=== PATIENT | female | born 1945 | race Caucasian/White ===

== ENCOUNTER 2021-08-21 06:01 | Day surgery (SDC) | payer MEDICARE ==
[2021-08-21] MEDS ORDERED: Bupivacaine 0.5% 30 ML SDV ONE (06:47)
[2021-08-21 06:49] LABS: ESTIMATED GFR 78 mL/min (>60)
[2021-08-21] MEDS ORDERED: Lactated Ringers 1,000 ML IV SCH (07:00)
[2021-08-21] MEDS ORDERED: Propofol 200 MG/20 ML SDV ONE (07:13)
[2021-08-21] MEDS ORDERED: fentaNYL 100 MCG/2 ML SDV ONE (07:13)
[2021-08-21] MEDS ORDERED: Midazolam 1 MG/ML 2 ML SDV ONE (07:13)
[2021-08-21] MEDS ORDERED: Nozin Nasal Sanitizer NASBOTH ONE (07:30)
[2021-08-21] MEDS ORDERED: ceFAZolin 1 GM in Premix Bag 1 BAG IV ONE (07:30)
[2021-08-21 09:32] VITALS: BP 129/68; PULSE 70
== END 2021-08-21 09:38 | disposition home or self-care (01) ==
LOC: JP.SDS 06:01
PROVIDERS: ATTEND Specialist
DX: D17.22 Benign lipomatous neoplasm of skin and subcutaneous tissue of left arm (principal); J45.909 Unspecified asthma, uncomplicated; E78.5 Hyperlipidemia, unspecified; K21.9 Gastro-esophageal reflux disease without esophagitis; Z88.2 Allergy status to sulfonamides; Z88.8 Allergy status to other drugs, medicaments and biological substances
CPT/HCPCS: 23075; 36415; 80053; 85027; 88304; A9270; J0690; J2250; J2704; J3010; J3490; J7120

== ENCOUNTER 2023-08-21 11:13 | Emergency (ER) | payer MEDICARE ==
[2023-08-21 11:29] VITALS: BP 151/81; PULSE 89
[2023-08-21 12:11] LABS: BASOPHILS ABSOLUTE AUTO 0.03 K/uL (0.00-0.10); BASOPHILS PERCENT AUTO 0.3 % (0.1-1.3); HEMATOCRIT 41.8 % (34.3-46.0); IMMATURE GRAN ABSOLUTE AUTO 0.04 K/uL (0.00-0.23); IMMATURE GRAN PERCENT AUTO 0.4 % (0.0-0.7); LYMPHOCYTES ABSOLUTE AUTO 0.73 K/uL (0.8-3.3); LYMPHOCYTES PERCENT AUTO 7.6 % (11.4-47.7); MEAN CORPUSCULAR HEMOGLOBIN 29.7 pg (31.6-35.5); MEAN CORPUSCULAR HGB CONC 33.5 g/dL (31.6-35.5); MEAN CORPUSCULAR VOLUME 88.6 fL (81.4-99.0); MONOCYTES ABSOLUTE AUTO 0.78 K/uL (0.20-0.90); MONOCYTES PERCENT AUTO 8.1 % (3.3-12.6); NEUTROPHILS ABSOLUTE AUTO 8.07 K/uL (1.0-7.6); NEUTROPHILS PERCENT AUTO 83.6 % (40.0-78.1); PLATELET COUNT,PLT 156 K/uL (130-375); RED BLOOD CELL COUNT 4.72 M/uL (3.77-5.24); WHITE BLOOD CELL COUNT,WBC 9.7 K/uL (3.2-11.0)
[2023-08-21] MEDS: Lidocaine 1% with EPINEPHrine 1:100,000 20 ML MDV INJECT ONE (13:21)
[2023-08-21] MEDS: Cefepime 2 GM in Sodium Chloride 0.9% 50 ML IV ONE (13:22)
== END 2023-08-21 14:16 | disposition home or self-care (01) ==
LOC: JP.ED 11:13
DX: L03.116 Cellulitis of left lower limb (principal); J45.909 Unspecified asthma, uncomplicated; K21.9 Gastro-esophageal reflux disease without esophagitis; Z79.899 Other long term (current) drug therapy; Z79.01 Long term (current) use of anticoagulants; Z86.16 Personal history of COVID-19; Z88.8 Allergy status to other drugs, medicaments and biological substances; Z88.1 Allergy status to other antibiotic agents; Z88.2 Allergy status to sulfonamides; Z88.6 Allergy status to analgesic agent
CPT/HCPCS: 10060; 36415; 85025; 86140; 96365; 99283; 99284-25; J0692; J3490

== ENCOUNTER 2023-08-24 20:41 | Emergency (ER) | payer MEDICARE ==
[2023-08-24 20:51] VITALS: BP 154/69; PULSE 88
== END 2023-08-24 22:00 | disposition home or self-care (01) ==
LOC: JP.ED 20:41
DX: L50.0 Allergic urticaria (principal); T36.1X5A Adverse effect of cephalosporins and other beta-lactam antibiotics, initial encounter; Z88.0 Allergy status to penicillin; Z88.6 Allergy status to analgesic agent; Z91.048 Other nonmedicinal substance allergy status; Z86.16 Personal history of COVID-19; Z79.01 Long term (current) use of anticoagulants; Z79.899 Other long term (current) drug therapy
CPT/HCPCS: 99283